=== PATIENT | male | born 1955 | race Caucasian/White ===

== ENCOUNTER → 2019-08-19 10:00 | Outpatient (CLI) | payer OTHER, SELFPAY | PROVIDERS: Family Provider Family Medicine; PCP Family Medicine; Referring Provider Urology; Visit Provider Urology | DX: N39.0 Urinary tract infection, site not specified (principal) | CPT/HCPCS: 87086 ==

== ENCOUNTER → 2020-07-24 08:50 | Outpatient (CLI) | payer OTHER, SELFPAY ==
[2020-07-24 10:50] LABS: PSA,Total - Annual Screen 2.57 ng/mL (0.00-4.00)
== END ==
PROVIDERS: PCP Family Medicine; Referring Provider Urology; Visit Provider Urology
CPT/HCPCS: 36415; 84153; G0103

== ENCOUNTER → 2020-08-03 18:13 | Outpatient (CLI) | payer OTHER, SELFPAY ==
--- NOTE | 2020-08-03 | FLU_PTH ---
PATIENT: MILEY GERBER LOC: [facility] U#:[id number] AGE/SX: 69/M ROOM: RE08/03/[address]: Dr. Burak Milian MD : 1955 BED: DIS: SPEC #: [id number] RECD: 08/03/20 15:45 STATUS: NIRMALA REBenito #: [id number] SAUL: 08/03/20 00:[address]: Burak Milian DEPT: CYTOLOGY RECD BY: Roldan Jones ENTERED: 08/04/20 09:27 SP TYPE: Fluid OTHR DR: Dr. Royer Bolden MD Tissues: Urine Procedures: Special Stain Group II Cytospin Fluid HEADER OPERATION: Not noted PRE-OP DIAGNOSIS: Malignant neoplasm of bladder TISSUE SUBMITTED: Urine for cytology DIAGNOSIS CYTOLOGY Urine for cytology (cytospin): Negative for malignant cells. AM:eddie 08/05/20 CYTOLOGY STUDY Slides are reviewed. CYTOLOGY GROSS Received is 70 ml of clear yellow fluid labeled with the patient's name and and designated per the requisition as urine. Submitted for cytology preparation. / eddie 08/04/20 TC:5 CPT: 97789
[2020-08-03 18:15] LABS: Cytology, Body Fluid / CSF SEE PATHOLOGY REPORT
== END ==
PROVIDERS: PCP Family Medicine; Visit Provider Urology
DX: C67.9 Malignant neoplasm of bladder, unspecified (principal)
CPT/HCPCS: 88108; 88305; 88313

== ENCOUNTER → 2021-08-04 11:26 | Outpatient (CLI) | payer MEDICARE, OTHER, SELFPAY | PROVIDERS: PCP Family Medicine; Referring Provider Urology; Visit Provider Urology | DX: Z12.5 Encounter for screening for malignant neoplasm of prostate (principal) | CPT/HCPCS: 36415; 84153; G0103 ==

== ENCOUNTER → 2021-08-09 16:58 | Outpatient (CLI) | payer MEDICARE, OTHER, SELFPAY ==
--- NOTE | 2021-08-09 09:44 | CYSPIN_PTH ---
PATIENT: MILEY GERBER LOC: [facility] U#:[id number] AGE/SX: 69/M ROOM: RE08/09/[address]: Dr. Burak Milian MD : 1955 BED: DIS: SPEC #: [id number] RECD: 08/10/21 07:38 STATUS: NIRMALA ROSIE #: [id number] SAUL: 08/09/21 09:[address]: Burak Milian DEPT: CYTOLOGY RECD BY: Tasha Granados ENTERED: 08/10/21 07:39 SP TYPE: CYSPIN FL OTHR DR: Dr. Royer Bolden MD Tissues: Urine Procedures: Pap Stain (control) Special Stain Group II Cytospin Fluid HEADER OPERATION: Not noted PRE-OP DIAGNOSIS: Bladder neoplasm TISSUE SUBMITTED: Urine for cytology DIAGNOSIS CYTOLOGY Urine for cytology (cytospin): Negative for malignant cells. AM:eddie 08/10/2021 CYTOLOGY STUDY Slides are reviewed. CYTOLOGY GROSS Received is 90 ml of light yellow clear fluid labeled with the patient's name and and designated per the requisition as urine. Submitted for cytology preparation. / eddie 08/09/21 TC:5 CPT: 23418
[2021-08-09 17:05] LABS: Cytology, Body Fluid / CSF SEE PATHOLOGY REPORT
== END ==
LOC: LAB 17:00 → LABSPEC 17:00
PROVIDERS: PCP Family Medicine; Referring Provider Urology; Visit Provider Urology
DX: C67.2 Malignant neoplasm of lateral wall of bladder (principal)
CPT/HCPCS: 88108; 88313

== ENCOUNTER → 2022-08-08 | Outpatient (CLI) | payer MEDICARE, OTHER, SELFPAY ==
[2022-08-08 14:55] LABS: PSA,Total - Annual Screen 0.73 ng/mL (0.00-4.00)
== END | disposition home or self-care (01) ==
LOC: LAB 13:42
PROVIDERS: PCP Family Medicine; Referring Provider Urology; Visit Provider Urology
DX: Z12.5 Encounter for screening for malignant neoplasm of prostate (principal)
CPT/HCPCS: 36415; 84153; G0103

== ENCOUNTER 2023-05-08 17:30 | Outpatient (RCR) | payer SELFPAY | END 2023-05-08 23:59 | LOC: NS 17:30 | PROVIDERS: PCP Family Medicine | DX: Z71.3 Dietary counseling and surveillance (principal); E11.9 Type 2 diabetes mellitus without complications ==

== ENCOUNTER → 2023-10-06 | Outpatient (CLI) | payer MEDICARE, OTHER, SELFPAY ==
--- OUTSIDE RECORDS SUMMARY | 2023-10-06 11:22 | XMS RPT_ITS | CCD ---
Author Name Unknown Address [address] [place] [address] Organization [facility] Care Team Providers Care Lead Generator Name Role Phone Ambrosio Conley MD Primary Care Provider [phone] AMBROSIO CONLEY Primary Care Unavailable FERNANDO HAYES Attending Unavailable AMBROSIO CONLEY Primary Care Unavailable SHAW OHARA Referring Unavailable ALESIA SINGH Attending Unavailable ALESIA SINGH Admitting Unavailable AMBROSIO CONLEY Primary Care Unavailable AMBROSIO CONLEY Primary Care Unavailable FERNANDO HAYES Referring Unavailable ALESIA SINGH Attending Unavailable AMBROSIO CONLEY Primary Care Unavailable SHAW OHARA Referring Unavailable AMBROSIO CONLEY Primary Care Unavailable SHAW OHARA Attending Unavailable AMBROSIO CONLEY Primary Care Unavailable AMBROSIO CONLEY Referring Unavailable Allergies Allergy Classification Reported Allergen(s) Allergy Type Date of Onset Reaction(s) Facility (6 sources) hay fever [Other] Propensity to adverse reactions [address] [place] [address] Work Phone: (2 sources) Seasonal allergy; Translations: [SEASONAL ALLERGIES] Allergy to substance 3 Intolerance [facility] Work Phone: (1 source) OTHER; Translations: [OTHER] Propensity to adverse reactions (disorder) 5 [facility] Repository Medications Current Medications Medication Drug Class(es) Dates Sig (Normalized) Sig (Original) fluticasone propionate 0.05 mg/actuat metered dose nasal spray (6 sources) Corticosteroid Start: 09-19-2023 End: 12-18-2023 take 2 spray(s) by mouth once daily fluticasone (FLONASE) 50 mcg/actuation nasal spray Indications: Seasonal allergies Use 2 Sprays in each nostril once daily. Rinse mouth after use. 3 Each 3 09/19/2023 12/18/2023 Active Completed/Discontinued Medications Medication Drug Class(es) Dates Sig (Normalized) Sig (Original) aspirin 81 mg delayed release oral tablet (7 sources) Platelet Aggregation Inhibitor, Nonsteroidal Anti-inflammatory Drug Start: 04-08-2009 ASPIRIN 81 MG TAB, DELAYED RELEASE Take one(1) tablet daily. 0 0 04/08/2009 Active Problems Active Problems Problem Classification Problem Date Documented Da te Episodic/Chronic Cancer of bladder (9 sources) Malignant tumor of urinary bladder; Translations: [Malignant neoplasm of bladder, unspecified] Onset: 03-14-2008 03-14-2008 Chronic Diabetes mellitus without complication (2 sources) Increased glucose level; Translations: [Other abnormal glucose] Onset: 09-14-2023 Episodic Disorders of lipid metabolism (3 sources) Hypercholesterolemi a; Translations: [Pure hypercholesterolemi a, unspecified] Onset: 09-14-2023 Chronic Hyperplasia of prostate (10 sources) Benign prostatic hypertrophy with outflow obstruction; Translations: [Benign prostatic hyperplasia with lower urinary tract symptoms] Onset: 03-26-2010 03-26-2010 Chronic Other diseases of bladder and urethra (7 sources) Bladder neck obstruction; Translations: [Bladder-neck obstruction] Onset: 03-26-2010 03-26-2010 Chronic Other nervous system disorders (3 sources) Carpal tunnel syndrome of right wrist; Translations: [Carpal tunnel syndrome, right upper limb] 05-05-2023 Chronic Other nervous system disorders (2 sources) Carpal tunnel syndrome, right upper limb; Translations: [Carpal tunnel syndrome on right] Onset: 07-17-2023 Chronic Other nervous system disorders (1 source) Paresthesia; Translations: [Paresthesia of skin] 05-05-2023 Episodic Other non-traumatic joint disorders (2 sources) Pain of right wrist; Translations: [Pain in right wrist] Episodic Other upper respiratory disease (9 sources) Seasonal allergy; Translations: [Other seasonal allergic rhinitis] Onset: 10-01-2010 10-01-2010 Chronic Other upper respiratory disease (1 source) Other seasonal allergic rhinitis; Translations: [Seasonal allergies] Onset: 10-01-2010 Chronic Viral infection (1 source) Disease caused by 2019-nCoV; Translations: [COVID-19] Episodic Past or Other Problems Problem Classification Problem Date Documented Da te Episodic/Chronic Cancer of bladder (9 sources) H/O: malignant neoplasm; Translations: [Personal history of malignant neoplasm of bladder] Onset: 03-26-2010 03-26-2010 Episodic Other non-epithelial cancer of skin (2 sources) History of malignant basal cell neoplasm of skin; Translations: [Personal history of other malignant neoplasm of skin] Onset: 03-09-2023 Episodic Other non-traumatic joint disorders (1 source) Pain in right wrist; Translations: [Right wrist pain] Onset: 05-05-2023 Episodic Results Test Name Value Interpretation Reference Range Facil ity Vital Signs Date Time Vital Sign Value Performing Clinician Faci lity 09-19-2023 10:46-0500 Diastolic blood pressure 82 mm[Hg] Fernando Hayes APRN.SALES REPRESENTATIVE TRAINEE Work Phone: [facility] 09-19-2023 10:46-0500 Systolic blood pressure 136 mm[Hg] Fernando Hayes APRN.SALES REPRESENTATIVE TRAINEE Work Phone: [facility] 09-19-2023 10:29-0500 Body weight 73.85 kg Fernando Hayes APRN.SALES REPRESENTATIVE TRAINEE Work Phone: [facility] 09-19-2023 10:29-0500 Heart rate 80 /min Fernando Hayes APRN.SALES REPRESENTATIVE TRAINEE Work Phone: [facility] 09-19-2023 10:29-0500 Respiratory rate 16 /min Fernando Hayes APRN.SALES REPRESENTATIVE TRAINEE Work Phone: [facility] 09-19-2023 10:29-0500 SaO2% (BldA) [Mass fraction] 98 % Fernando Hayes APRN.SALES REPRESENTATIVE TRAINEE Work Phone: [facility] 03-09-2023 10:51-0400 Diastolic blood pressure 80 mm[Hg] Shaw Ohara APRN.SALES REPRESENTATIVE TRAINEE Work Phone: [facility] 03-09-2023 10:51-0400 Systolic blood pressure 130 mm[Hg] Shaw Ohara APRN.SALES REPRESENTATIVE TRAINEE Work Phone: [facility] 03-09-2023 10:11-0400 Body weight 73.48 kg Shaw Ohara APRN.SALES REPRESENTATIVE TRAINEE Work Phone: [facility] 03-09-2023 10:11-0400 Heart rate 100 /min Shaw Ohara APRN.SALES REPRESENTATIVE TRAINEE Work Phone: [facility] 03-09-2023 10:11-0400 Respiratory rate 16 /min Shaw Ohara APRN.SALES REPRESENTATIVE TRAINEE Work Phone: [facility] 03-09-2023 10:11-0400 SaO2% (BldA) [Mass fraction] 98 % Shaw Ohara APRN.SALES REPRESENTATIVE TRAINEE Work Phone: [facility] Encounters Encounter Date Encounter Type Care Provider Facility Start: 09-28-2023 End: 09-28-2023 ambulatory ALESIA SINGH Facility:[facility] Start: 09-19-2023 End: 09-19-2023 ambulatory AMBROSIO CONLEY Facility:[facility] Start: 09-19-2023 End: 09-19-2023 Office outpatient visit 15 minutes Fernando Hayes APRN.SALES REPRESENTATIVE TRAINEE Work Phone: [facility] Procedures Date Procedure Procedure Detail Performing Clinician Start: 09-14-2023 Lipid 1996 panel - S chuck or Plasma Fernando Hayes APRN.SALES REPRESENTATIVE TRAINEE Work Phone: Start: 05-05-2023 Nerve conduction priscilla dies 5-6 studies Shaw Ohara APRN.SALES REPRESENTATIVE TRAINEE Work Phone: Start: 03-08-2023 Lipid 1996 panel - S chuck or Plasma Alesia Singh MD Work Phone: Start: 11-10-2021 Colonoscopy Tawny allen APRN.SALES REPRESENTATIVE TRAINEE Work Phone: Plan of Treatment Date Care Activity Detail Author Start: 11-10-2031 Colonoscopy COLONOSCOPY [facility] Start: 11-10-2031 COLORECTAL CANCER SCREENING COLORECTAL CANCER SCREENING [facility] Start: 11-10-2031 Screening for malign ant neoplasm of colon [facility] Start: 01-21-2029 Urine microalbumin profile [facility] Start: 09-14-2028 Lipid panel Lipid Screening [facility] Start: 03-08-2028 Lipid 1996 panel - S chuck or Plasma Lipid Screening [facility] Start: 03-08-2028 LIPID SCREEN LIPID SCREEN [facility] Start: 03-08-2028 PROSTATE CANCER SCRE ENING DISCUSSION PROSTATE CANCER SCREENING DISCUSSION [facility] Start: 03-08-2028 Prostate specific an tigen measurement Prostate Cancer Screening Discussion [facility] Start: 09-29-2026 LIPID SCREEN LIPID SCREEN [facility] Start: 09-14-2026 Diabetes Screening Diabetes Screenin g [facility] Start: 03-08-2026 DIABET[facility]CREEN [facility] Start: 03-08-2026 Diabetes Screening Diabetes Screenin g [facility] Start: 09-29-2024 DIABETES SCREEN DIABETES SCREEN [facility] Start: 09-19-2024 RSV Vaccine (1 - 1-d ose 60+ series) RSV Vaccine (1 - 1-dose 60+ series) [facility] Immunizations Immunization Date Immunization Notes Care Provider Consuelo rothman 08-11-2023 influenza (HD-IIV4) vaccine, age 65+ yr, high dose, quadrivalent, PF (FLUZONE HIGH-DOSE) Fernando Hayes PULMONARY FUNCTION TECHNOLOGIST.SALES REPRESENTATIVE TRAINEE Work Phone: [facility] 07-18-2022 influenza (HD-IIV4) vaccine, age 65+ yr, high dose, quadrivalent, PF (FLUZONE HIGH-DOSE) Fernando Howard PULMONARY FUNCTION TECHNOLOGIST.SALES REPRESENTATIVE TRAINEE Work Phone: [facility] 07-18-2022 influenza virus vacc ine, unspecified formulation Alesia Singh MD Work Phone: [facility] 08-03-2021 influenza (HD-IIV4) vaccine, age 65+ yr, high dose, quadrivalent, PF (FLUZONE HIGH-DOSE) Fernando Howard PULMONARY FUNCTION TECHNOLOGIST.SALES REPRESENTATIVE TRAINEE Work Phone: [facility] 11-11-2020 pneumococcal polysaccharide vaccine, 23 valent Tawny López PULMONARY FUNCTION TECHNOLOGIST.SALES REPRESENTATIVE TRAINEE Work Phone: [facility] 07-17-2020 influenza, injectabl e, quadrivalent, preservative free Fernando Hayes PULMONARY FUNCTION TECHNOLOGIST.SALES REPRESENTATIVE TRAINEE Work Phone: [facility] 07-09-2019 Influenza, injectabl e, Madin Bria Canine Kidney, preservative free, quadrivalent Fernando Howard PULMONARY FUNCTION TECHNOLOGIST.SALES REPRESENTATIVE TRAINEE Work Phone: [facility] 01-21-2019 tetanus toxoid, redu kristi diphtheria toxoid, and acellular pertussis vaccine, adsorbed Tawny Knoble PULMONARY FUNCTION TECHNOLOGIST.SALES REPRESENTATIVE TRAINEE Work Phone: [facility] 07-09-2018 Influenza, injectabl e, Madin Patterson Canine Kidney, preservative free, quadrivalent Fernando Howard PULMONARY FUNCTION TECHNOLOGIST.SALES REPRESENTATIVE TRAINEE Work Phone: [facility] 07-04-2017 influenza, injectabl e, quadrivalent, contains preservative Fernando Howard PULMONARY FUNCTION TECHNOLOGIST.SALES REPRESENTATIVE TRAINEE Work Phone: [facility] 07-27-2015 influenza, injectabl e, quadrivalent, preservative free Tawny Knoble PULMONARY FUNCTION TECHNOLOGIST.SALES REPRESENTATIVE TRAINEE Work Phone: [facility] 07-28-2014 influenza, seasonal, injectable, preservative free Fernando Howard PULMONARY FUNCTION TECHNOLOGIST.SALES REPRESENTATIVE TRAINEE Work Phone: [facility] 08-13-2013 influenza virus vacc ine, unspecified formulation Tawny Rene PULMONARY FUNCTION TECHNOLOGIST.SALES REPRESENTATIVE TRAINEE Work Phone: [facility] Work Phone: 09-28-2009 novel influenza-H1N1 -09, preservative-free, injectable Fernando Howard PULMONARY FUNCTION TECHNOLOGIST.SALES REPRESENTATIVE TRAINEE Work Phone: [facility] 04-08-2009 tetanus toxoid, redu kristi diphtheria toxoid, and acellular pertussis vaccine, adsorbed Tawny Knoble PULMONARY FUNCTION TECHNOLOGIST.SALES REPRESENTATIVE TRAINEE Work Phone: [facility] Work Phone: Payers Date Payer Category Payer Private Health Insurance [facility] AARP SUPPLEMENT [id number] 2021-Present [phone] [address] [place] [address] Indemnity [id number] 2021 Unknown [id number] 2019 Medicare MEDICARE MEDICAR E A AND B [id number] 2019-Present [phone] [place] [address] Medicare [id number] 2019 Medicare [id number] Social History Date Type Detail Facility Start: 01-21-2019 End: 03-09-2023 Tobacco smoking status NHIS Never smoked tobacco [facility] Start: 01-21-2019 End: 03-09-2023 Tobacco use and exposure Smokeless tobacco non-user [facility] Start: 11-10-2021 End: 09-19-2023 Alcohol intake Current drinker of alcohol (finding) [facility] Start: 09-26-2022 History SDOH Social Connections Phone 3 [facility] Start: 09-26-2022 History SDOH Social Connections Membership 1 [facility] Start: 09-26-2022 History SDOH Physica l Activity DPW 6 [facility] Start: 09-26-2022 History SDOH Physica l Activity MPS 2 [facility] Start: 1955 Sex Assigned At Male C [facility] Start: 09-26-2022 End: 03-09-2023 History of Social function [facility] Start: 09-26-2022 End: 03-09-2023 Social connection and isolation panel [facility] Frequency of Social Gatherings with Friends and Family Not on file [facility] Work Phone: Do you belong to any clubs or organizations such as episcopal groups, unions, fraternal or athletic groups, or school groups? Yes [facility] Do you feel stress - tense, restless, nervous, or anxious, or unable to sleep at night because your mind is troubled all the time - these days [OSQ] Not at all [facility] Clinical Notes 09-26-2022 to 09-19-2023 Fernando Hayes APRN.SALES REPRESENTATIVE TRAINEE - 09/19/2023 10:32 AM ESTTelephone Encounter - Sarah Forde Ma - 08/16/2023 8:21 AM ESTTelephone Encounter - Sarah Forde Ma - 08/10/2023 10:16 AM EDTPatient Instructions Note Date & Type Note Facility 09-19-2023 Note HNO ID: [id number] Author: Fernando Hayes APRN.SALES REPRESENTATIVE TRAINEE Service: ? Author Type: Nurse Practitioner Type: Progress Notes Filed: 09/19/2023 10:55 AM Note Text: Chief Complaint Patient presents with: F/U 6 Month HPI Miley Baez is a 67 year old male who presents here today for Chronic Medical Conditions. follow up for blood work review. Patient following with urology for BPH. Taking meds as prescribed. He is on a daily aspirin. Reviewing labs with the patient. Cholesterol panel mildly elevated. LDL is consistent with past readings. HDL is in good range. LDL HDL ratio is normal. Discussed some lifestyle changes that I would recommend first before any pursuing of medication. Requesting refill of Flonase for seasonal allergies. Past medical history, appointments, medications, allergies reviewed. EXAM: BP 136/82 Pulse 80 Resp 16 Wt 73.8 kg (162 lb 12.8 oz) SpO2 98% BMI 25.11 kg/m? General Appearance: Well appearing, alert, in no acute distress, well-hydrated, well nourished.. Lungs: Lungs clear to auscultation. No wheezing, rhonchi, rales.. Heart: RRR without murmur, gallop, or rubs. No ectopy. Component Latest Ref Rng AND Units 09/14/2023 WBC 3.70 - 11.00 k/uL 4.24 RBC 4.20 - 6.00 m/uL 5.01 Hemoglobin 13.0 - 17.0 g/dL 15.8 Hematocrit 39.0 - 51.0 % 47.6 MCV 80.0 - 100.0 fL 95.0 MCH 26.0 - 34.0 pg 31.5 MCHC 30.5 - 36.0 g/dL 33.2 RDW-CV 11.5 - 15.0 % 12.7 Platelet Count 150 - 400 k/uL 235 MPV 9.0 - 12.7 fL 9.4 Neut% % 61.2 Abs Neut (ANC) 1.45 - 7.50 k/uL 2.59 Lymph% % 19.3 Abs Lymph 1.00 - 4.00 k/uL 0.82 (L) Morrill% % 12.0 Abs Morrill <0.87 k/uL 0.51 Eosin% % 6.4 Abs Eosin <0.46 k/uL 0.27 Baso% % 0.9 Abs Baso <0.11 k/uL 0.04 Immature Gran % % 0.2 IMMATURE GRANS (ABS) <0.10 k/uL <0.03 NRBC /100 WBC 0.0 Absolute nRBC <0.01 k/uL <0.01 DTYPE Auto Protein, Total 6.3 - 8.0 g/dL 6.7 Albumin 3.9 - 4.9 g/dL 4.6 Calcium 8.5 - 10.2 mg/dL 9.4 Bilirubin, Total 0.2 - 1.3 mg/dL 0.7 Alkaline Phosphatase 38 - 113 U/L 63 AST 14 - 40 U/L 20 ALT 10 - 54 U/L 15 Glucose 74 - 99 mg/dL 103 (H) BUN 9 - 24 mg/dL 13 Creatinine 0.73 - 1.22 mg/dL 0.97 Sodium 136 - 144 mmol/L 136 Potassium 3.7 - 5.1 mmol/L 3.8 Chloride 97 - 105 mmol/L 99 CO2 22 - 30 mmol/L 30 Anion Gap 9 - 18 mmol/L 7 (L) eGFR >=60 mL/min/1.73mA? 85 Cholesterol, Total <200 mg/dL 209 (H) Triglyceride <150 mg/dL 66 HDL Cholesterol >39 mg/dL 61 Non HDL Cholesterol <130 mg/dL 148 (H) Fasting Time hrs 12 VLDL Cholesterol <30 mg/dL 13 TC:HDL Ratio <5.10 3.43 LDL Cholesterol <100 mg/dL 135 (H) LDL:HDL Ratio <2.54 2.21 Hemoglobin A1C 4.3 - 5.6 % 5.3 Estimated Average Glucose mg/dL 105 ASSESSMENT/PLAN: 1. Elevated cholesterol - ICD9: 272.0, ICD10: E78.00 (primary diagnosis) -10-year risk is marginally elevated. Discussed lifestyle changes that would be recommended first. Patient seems to think there is some areas of improvement that could occur. Reassuring that HDL is on the higher side. Continue to monitor yearly. 2. Seasonal allergies - ICD9: 477.9, ICD10: J30.2 -Refilled - FLUTICASONE PROPIONATE 50 MCG/ACTUATION NASAL SPRAY,SUSPENSION 3. Benign prostatic hyperplasia, unspecified whether lower urinary tract symptoms present - ICD9: 600.00, ICD10: N40.0 -Continue following with urology Fernando Hayes APRN.SALES REPRESENTATIVE TRAINEE RTO in 12 months, sooner if needed for Medicare Wellness Exam. This note was partly generated using [employer] voice recognition dictation and may contain some misspelled or inaccurate words missed on review. [facility] 09-19-2023 History of Present illness Narrative Chief Complaint Patient presents with: F/U 6 Month HPI Miley Baez is a 67 year old male who presents here today for Chronic Medical Conditions. follow up for blood work review. Patient following with urology for BPH. Taking meds as prescribed. He is on a daily aspirin. Reviewing labs with the patient. Cholesterol panel mildly elevated. LDL is consistent with past readings. HDL is in good range. LDL HDL ratio is normal. Discussed some lifestyle changes that I would recommend first before any pursuing of medication. Requesting refill of Flonase for seasonal allergies. Past medical history, appointments, medications, allergies reviewed. EXAM: BP 136/82 Pulse 80 Resp 16 Wt 73.8 kg (162 lb 12.8 oz) SpO2 98% BMI 25.11 kg/m General Appearance: Well appearing, alert, in no acute distress, well-hydrated, well nourished.. Lungs: Lungs clear to auscultation. No wheezing, rhonchi, rales.. Heart: RRR without murmur, gallop, or rubs. No ectopy. Component Latest Ref Rng & Units 09/14/2023 WBC 3.70 - 11.00 k/uL 4.24 RBC 4.20 - 6.00 m/uL 5.01 Hemoglobin 13.0 - 17.0 g/dL 15.8 Hematocrit 39.0 - 51.0 % 47.6 MCV 80.0 - 100.0 fL 95.0 MCH 26.0 - 34.0 pg 31.5 MCHC 30.5 - 36.0 g/dL 33.2 RDW-CV 11.5 - 15.0 % 12.7 Platelet Count 150 - 400 k/uL 235 MPV 9.0 - 12.7 fL 9.4 Neut% % 61.2 Abs Neut (ANC) 1.45 - 7.50 k/uL 2.59 Lymph% % 19.3 Abs Lymph 1.00 - 4.00 k/uL 0.82 (L) Morrill% % 12.0 Abs Morrill <0.87 k/uL 0.51 Eosin% % 6.4 Abs Eosin <0.46 k/uL 0.27 Baso% % 0.9 Abs Baso <0.11 k/uL 0.04 Immature Gran % % 0.2 IMMATURE GRANS (ABS) <0.10 k/uL <0.03 NRBC /100 WBC 0.0 Absolute nRBC <0.01 k/uL <0.01 DTYPE Auto Protein, Total 6.3 - 8.0 g/dL 6.7 Albumin 3.9 - 4.9 g/dL 4.6 Calcium 8.5 - 10.2 mg/dL 9.4 Bilirubin, Total 0.2 - 1.3 mg/dL 0.7 Alkaline Phosphatase 38 - 113 U/L 63 AST 14 - 40 U/L 20 ALT 10 - 54 U/L 15 Glucose 74 - 99 mg/dL 103 (H) BUN 9 - 24 mg/dL 13 Creatinine 0.73 - 1.22 mg/dL 0.97 Sodium 136 - 144 mmol/L 136 Potassium 3.7 - 5.1 mmol/L 3.8 Chloride 97 - 105 mmol/L 99 CO2 22 - 30 mmol/L 30 Anion Gap 9 - 18 mmol/L 7 (L) eGFR >=60 mL/min/1.73m 85 Cholesterol, Total <200 mg/dL 209 (H) Triglyceride <150 mg/dL 66 HDL Cholesterol >39 mg/dL 61 Non HDL Cholesterol <130 mg/dL 148 (H) Fasting Time hrs 12 VLDL Cholesterol <30 mg/dL 13 TC:HDL Ratio <5.10 3.43 LDL Cholesterol <100 mg/dL 135 (H) LDL:HDL Ratio <2.54 2.21 Hemoglobin A1C 4.3 - 5.6 % 5.3 Estimated Average Glucose mg/dL 105 ASSESSMENT/PLAN: 1. Elevated cholesterol - ICD9: 272.0, ICD10: E78.00 (primary diagnosis) -10-year risk is marginally elevated. Discussed lifestyle changes that would be recommended first. Patient seems to think there is some areas of improvement that could occur. Reassuring that HDL is on the higher side. Continue to monitor yearly. 2. Seasonal allergies - ICD9: 477.9, ICD10: J30.2 -Refilled - FLUTICASONE PROPIONATE 50 MCG/ACTUATION NASAL SPRAY,SUSPENSION 3. Benign prostatic hyperplasia, unspecified whether lower urinary tract symptoms present - ICD9: 600.00, ICD10: N40.0 -Continue following with urology Fernando Hayes APRN.CNP RTO in 12 months, sooner if needed for Medicare Wellness Exam. This note was partly generated using Dragon voice recognition dictation and may contain some misspelled or inaccurate words missed on review. documented in this encounter [facility] 08-16-2023 Miscellaneous Notes Surgery has been scheduled as requested. Surgical request completed for right CTR at [facility] on 09/28/2023. Post op appointments have been scheduled and mailed to the patient. documented in this encounter [facility] 07-17-2023 Note HNO ID: [id number] Author: Alesia Singh MD Service: ? Author Type: Physician Type: Progress Notes Filed: 07/17/2023 11:25 AM Note Text: Alesia Singh MD Department of Orthopaedics Orthopaedics [address] [facility] [address] Dept: [phone] Dept July 17, 2023 CHIEF COMPLAINT: New and Pain of the Right Wrist (CTS) HPI Patient presents with: Right Wrist - New, Pain: CTS Pt here for eval of CTS. Pt states no pain during the day, only at night. Been wearing a brace at night with minimal help. Right hand dominant ASSESSMENT: G56.01 Carpal tunnel syndrome, right PLAN: We reviewed the risks, benefits, alternatives and potential complications involving both operative and nonoperative treatment for his carpal tunnel. 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 FOLLOW UP INSTRUCTIONS: As above Mr. Miley Baez was advised as to contrast therapies and/or to take analgesics/anti-inflammatories as needed and all contraindications were reviewed. OBJECTIVE: Mr. Miley Baez is a pleasant 67 year old in no apparent distress. Gen:There were no vitals taken for this visit. nl development, non obese, no deformities ENT: Normocephalic, normal hearing, moist mucosa CV: Pulses:Radial= 2+ and symmetric, capillary refill < 2 secs, no peripheral edema/varicosities Skin: no rash, bruising or lesions. Good turgor. Psych: cooperative and appropriate, alert and oriented x 3, good mood and affect. Musculoskeletal: Mild diminished light touch sensation in the median distribution on the right. Positive Tinel's and positive median nerve compression testing. IMAGING: Electrodiagnostic examination of the right upper limb and related cervical paraspinal muscles reveals changes most consistent with the followin. 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 2. 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 3. No definite evidence of an ulnar neuropathy. Supporting Subjective Information Below: Past Medical History: PAST MEDICAL HISTORY Diagnosis Date Malignant neoplasm of bladder, part unspecified Other and unspecified hyperlipidemia Seasonal allergies Past Surgical History: PAST SURGICAL HISTORY Procedure Laterality Date COLONOSCOPY 11/10/2021 repeat in 10 years COLONOSCOPY FLX DX W/COLLJ SPEC WHEN PFRMD 04/06/2011 Family History: FAMILY HISTORY Problem Relation Age of Onset Heart Father at age of 53 Diabetes Mother Heart Mother [place] 73, heart valve replacement Diabetes Maternal Grandmother Social History: Social History Tobacco Use Smoking status: Never Smokeless tobacco: Never Substance Use Topics Alcohol use: Yes Comment: Occ Drug use: Never Medications: Current Outpatient Medications Medication Sig dutasteride (AVODART) 0.5 mg capsule Take 0.5 mg by mouth once daily. tamsulosin ER (FLOMAX) 0.4 mg cp24 TAKE 1 CAPSULE TWICE DAILY ASPIRIN 81 MG TAB, DELAYED RELEASE Take one(1) tablet daily. No current facility-administered medications for this visit. Allergies: Hay Fever [Other] ROS: General (negative for fatigue, malaise, weight loss/gain) HEENT (negative for headache, earache, recent vision changes, sinus pain, sore throat) Respiratory (no recent shortness of breath, hemoptysis) CV (negative for chest tightness, palpitations) Musculoskeletal (see HPI) Psych (no depression, anxiety) REFERRING PHYSICIAN: Consultation requested by Fernando Hayes for an opinion regarding right carpal tunnel. My final recommendations will be communicated back to the requesting physician by way of shared Medical record or letter to requesting physician via US mail. Fernando Hayes [address] [facility] [address] Ambrosio Conley MD [address] [facility] [id number] Alesia Singh MD [facility] 07-17-2023 History of Present illness Narrative Alesia Singh MD Department of Orthopaedics Orthopaedics [address] [facility] [address] Dept: [phone] Dept July 17, 2023 CHIEF COMPLAINT: New and Pain of the Right Wrist (CTS) HPI Patient presents with: Right Wrist - New, Pain: CTS Pt here for eval of CTS. Pt states no pain during the day, only at night. Been wearing a brace at night with minimal help. Right hand dominant ASSESSMENT: G56.01 Carpal tunnel syndrome, right PLAN: We reviewed the risks, benefits, alternatives and potential complications involving both operative and nonoperative treatment for his carpal tunnel. 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 FOLLOW UP INSTRUCTIONS: As above Mr. Miley Baez was advised as to contrast therapies and/or to take analgesics/anti-inflammatories as needed and all contraindications were reviewed. OBJECTIVE: Mr. Miley Baez is a pleasant 67 year old in no apparent distress. Gen:There were no vitals taken for this visit. nl development, non obese, no deformities ENT: Normocephalic, normal hearing, moist mucosa CV: Pulses:Radial= 2+ and symmetric, capillary refill < 2 secs, no peripheral edema/varicosities Skin: no rash, bruising or lesions. Good turgor. Psych: cooperative and appropriate, alert and oriented x 3, good mood and affect. Musculoskeletal: Mild diminished light touch sensation in the median distribution on the right. Positive Tinel's and positive median nerve compression testing. IMAGING: Electrodiagnostic examination of the right upper limb and related cervical paraspinal muscles reveals changes most consistent with the followin. 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 2. 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 3. No definite evidence of an ulnar neuropathy. Supporting Subjective Information Below: Past Medical History: PAST MEDICAL HISTORY Diagnosis Date Malignant neoplasm of bladder, part unspecified Other and unspecified hyperlipidemia Seasonal allergies Past Surgical History: PAST SURGICAL HISTORY Procedure Laterality Date COLONOSCOPY 11/10/2021 repeat in 10 years COLONOSCOPY FLX DX W/COLLJ SPEC WHEN PFRMD 04/06/2011 Family History: FAMILY HISTORY Problem Relation Age of Onset Heart Father at age of 53 Diabetes Mother Heart Mother [place] 73, heart valve replacement Diabetes Maternal Grandmother Social History: Social History Tobacco Use Smoking status: Never Smokeless tobacco: Never Substance Use Topics Alcohol use: Yes Comment: Occ Drug use: Never Medications: Current Outpatient Medications Medication Sig dutasteride (AVODART) 0.5 mg capsule Take 0.5 mg by mouth once daily. tamsulosin ER (FLOMAX) 0.4 mg cp24 TAKE 1 CAPSULE TWICE DAILY ASPIRIN 81 MG TAB, DELAYED RELEASE Take one(1) tablet daily. No current facility-administered medications for this visit. Allergies: Hay Fever [Other] ROS: General (negative for fatigue, malaise, weight loss/gain) HEENT (negative for headache, earache, recent vision changes, sinus pain, sore throat) Respiratory (no recent shortness of breath, hemoptysis) CV (negative for chest tightness, palpitations) Musculoskeletal (see HPI) Psych (no depression, anxiety) REFERRING PHYSICIAN: Consultation requested by Fernando Hayes for an opinion regarding right carpal tunnel. My final recommendations will be communicated back to the requesting physician by way of shared Medical record or letter to requesting physician via US mail. Fernando Hayes [address] [facility] [address] Ambrosio Conley MD [address] [facility] [address] Alesia Singh MD documented in this encounter [facility] 05-05-2023 Note HNO ID: [id number] Author: Tawny Vasquez MD Service: ? Author Type: Physician Type: Progress Notes Filed: 05/05/2023 11:23 AM Note Text: UNIVERSAL PROTOCOL / SAFETY CHECKLIST Procedure to be Performed: EMG Sign In: A Moment of CARE was completed. Personnel directly involved with the procedure wore the appropriate PPE (Personal Protective Equipment). Patient/Surrogate Stated/Verified: PATIENT VERIFIED(optional for EMERGENT procedures): Patient name, Date of , Relevant allergies, and The intended procedure Time Out Communication: Intended patient and procedure match the source documents. Correct side/site marked and visible. Sign Out: SIGN OUT (optional for EMERGENT procedures): Post-procedure follow-up management communicated and Plan of Care Visit completed when applicable. Sonia Cabrera EMG Tawny Vasquez MD Staff, [facility] [place] Electronically signed May 05, 2023 11:23 AM [facility] 05-05-2023 Miscellaneous Notes Patient notified of results, verbalizes understanding of instructions. Millicent Mejia LPN Please let the patient know that I reviewed his recent EMG of the right upper extremity. Shows likely some of his right wrist pain is related to carpal tunnel syndrome. I placed a referral to orthopedics for treatment. I am covering for Shaw as she is on vacation. Fernando Hayes APRN.JESSIE documented in this encounter [facility] 05-05-2023 History of Present illness Narrative UNIVERSAL PROTOCOL / SAFETY CHECKLIST Procedure to be Performed: EMG Sign In: A Moment of CARE was completed. Personnel directly involved with the procedure wore the appropriate PPE (Personal Protective Equipment). Patient/Surrogate Stated/Verified: PATIENT VERIFIED(optional for EMERGENT procedures): Patient name, Date of , Relevant allergies, and The intended procedure Time Out Communication: Intended patient and procedure match the source documents. Correct side/site marked and visible. Sign Out: SIGN OUT (optional for EMERGENT procedures): Post-procedure follow-up management communicated and Plan of Care Visit completed when applicable. Sonia Vasquez MD Staff, [facility] [place] Electronically signed May 05, 2023 11:23 AM documented in this encounter [facility] 03-09-2023 Note HNO ID: [id number] Author: Shaw Ohara APRN.SALES REPRESENTATIVE TRAINEE Service: ? Author Type: Nurse Practitioner Type: Progress Notes Filed: 03/09/2023 10:56 AM Note Text: HISTORY OF PRESENT ILLNESS: Miley Baez is a 67 year old male. Patient presents with: 6 Month Exam: labs Here in the office for follow up. Urology: History of BPH and bladder cancer. Taking Flomax/Avodart. Following with urology, Dr. Milian yearly. Basal cell skin cancer: Following with dermatology, Dr. Mccullough twice yearly. Seasonal Allergies: Taking Xyzal and Flonase daily. Right Hand/Forearm Tingling: Numbness and tingling into the right hand and can move into the forearm. Waxes and wanes. Worse with increased activity. Has been wearing wrist brace and NSAIDS which has not been effective. Some decreased carbon printer strength. Started about 5-10 years. PAST MEDICAL HISTORY: PAST MEDICAL HISTORY Diagnosis Date Malignant neoplasm of bladder, part unspecified Other and unspecified hyperlipidemia Seasonal allergies PAST SURGICAL HISTORY Procedure Laterality Date COLONOSCOPY 11/10/2021 repeat in 10 years COLONOSCOPY FLX DX W/COLLJ SPEC WHEN PFRMD 04/06/2011 ALLERGIES Hay Fever [Other] MEDICATIONS Current Outpatient Medications Medication Sig dutasteride (AVODART) 0.5 mg capsule Take 0.5 mg by mouth once daily. fluticasone (FLONASE) 50 mcg/actuation nasal spray Use 2 Sprays in each nostril once daily. tamsulosin ER (FLOMAX) 0.4 mg cp24 TAKE 1 CAPSULE TWICE DAILY ASPIRIN 81 MG TAB, DELAYED RELEASE Take one(1) tablet daily. No current facility-administered medications for this visit. FAMILY HISTORY Problem Relation Age of Onset Heart Father at age of 53 Diabetes Mother Heart Mother [place] 73, heart valve replacement Diabetes Maternal Grandmother Social History Tobacco Use Smoking status: Never Smokeless tobacco: Never Substance Use Topics Alcohol use: Yes Comment: Occ Drug use: Never REVIEW OF SYSTEMS GENERAL: No weight loss, malaise or fevers/chills HEENT: Negative for frequent or significant headaches, No changes in hearing or vision. NECK: Negative for lumps, goiter, pain and significant neck swelling RESPIRATORY: Negative for cough, hemoptysis, wheezing, dyspnea or shortness of breath CARDIOVASCULAR: Negative for chest pain, leg swelling, orthopnea, or palpitations GI: No nausea, vomiting, or diarrhea/constipation. No hematochezia/melena. No heartburn or reflux symptoms. : No history of dysuria, frequency or incontinence MUSCULOSKELETAL: Pain/numbness tingling. SKIN: Negative for lesions, rash, and itching ENDOCRINE: Negative for cold or heat intolerance, polyuria, polydipsia and goiter NEURO: No history of headaches, syncope, paralysis, seizures or tremors MOOD: Negative for depression, anxiety, or suicidal ideation. EXAM: BP 150/90 Pulse 100 Resp 16 Wt 73.5 kg (162 lb) SpO2 98% BMI 24.98 kg/m? BP 130/80 Pulse 100 Resp 16 Wt 73.5 kg (162 lb) SpO2 98% BMI 24.98 kg/m? PHYSICAL EXAM: General Appearance: Well appearing, alert, in no acute distress, well-hydrated, well nourished. Skin: Skin color, texture, turgor normal, no suspicious rashes or lesions. Head: Normocephalic, no masses, lesions, tenderness or abnormalities. Eyes: Anicteric sclera. Extraocular movements are intact. Lungs: Lungs clear to auscultation. No wheezing, rhonchi, rales. Heart: RRR without murmur, gallop, or rubs. No ectopy. Extremities: No deformities, edema, skin discoloration, clubbing or cyanosis. Good capillary refill. Musculoskeletal: + Tinels test on right hand. Decreased carbon printer strength. Nontender with palpation. Peripheral Pulses: Normal, Capillary refill <2secs, strong peripheral pulses, Pulses palpable. Neurologic: Gait normal. Sensation grossly intact. Component Latest Ref Rng AND Units 03/08/2023 WBC 3.70 - 11.00 k/uL 4.16 RBC 4.20 - 6.00 m/uL 5.03 Hemoglobin 13.0 - 17.0 g/dL 15.8 Hematocrit 39.0 - 51.0 % 47.0 MCV 80.0 - 100.0 fL 93.4 MCH 26.0 - 34.0 pg 31.4 MCHC 30.5 - 36.0 g/dL 33.6 RDW-CV 11.5 - 15.0 % 13.0 Platelet Count 150 - 400 k/uL 224 MPV 9.0 - 12.7 fL 9.7 Neut% % 56.5 Abs Neut (ANC) 1.45 - 7.50 k/uL 2.35 Lymph% % 22.6 Abs Lymph 1.00 - 4.00 k/uL 0.94 (L) Morrill% % 12.0 Abs Morrill <0.87 k/uL 0.50 Eosin% % 7.7 Abs Eosin <0.46 k/uL 0.32 Baso% % 1.0 Abs Baso <0.11 k/uL 0.04 Immature Gran % % 0.2 IMMATURE GRANS (ABS) <0.10 k/uL <0.03 NRBC /100 WBC 0.0 Absolute nRBC <0.01 k/uL <0.01 DTYPE Auto Protein, Total 6.3 - 8.0 g/dL 6.4 Albumin 3.9 - 4.9 g/dL 4.3 Calcium 8.5 - 10.2 mg/dL 9.1 Bilirubin, Total 0.2 - 1.3 mg/dL 0.7 Alkaline Phosphatase 38 - 113 U/L 63 AST 14 - 40 U/L 28 ALT 10 - 54 U/L 21 Glucose 74 - 99 mg/dL 107 (H) BUN 9 - 24 mg/dL 17 Creatinine 0.73 - 1.22 mg/dL 1.06 Sodium 136 - 144 mmol/L 139 Potassium 3.7 - 5.1 mmol/L 3.9 Chloride 97 - 105 mmol/L 103 CO2 22 - 30 mmol/L 29 Anion Gap 9 - 18 m (more content not included)... [facility] 03-09-2023 Instructions Shaw Ohara APRN.SALES REPRESENTATIVE TRAINEE - 03/09/2023 10:41 AM EDT Get repeat fasting labs completed in 6 months prior to next office visit. Continue to take all medication as prescribed. Schedule appointment for EMG testing for wrist pain. Continue to wear wrist brace, NSAIDS, and ice as needed. Work on eating low carb, increase protein, veggies, and stay active. Follow up in 6 months or sooner as needed. documented in this encounter [facility] 03-09-2023 History of Present illness Narrative HISTORY OF PRESENT ILLNESS: Miley Baez is a 67 year old male. Patient presents with: 6 Month Exam: labs Here in the office for follow up. Urology: History of BPH and bladder cancer. Taking Flomax/Avodart. Following with urology, Dr. Milian yearly. Basal cell skin cancer: Following with dermatology, Dr. Mccullough twice yearly. Seasonal Allergies: Taking Xyzal and Flonase daily. Right Hand/Forearm Tingling: Numbness and tingling into the right hand and can move into the forearm. Waxes and wanes. Worse with increased activity. Has been wearing wrist brace and NSAIDS which has not been effective. Some decreased carbon printer strength. Started about 5-10 years. PAST MEDICAL HISTORY: PAST MEDICAL HISTORY Diagnosis Date Malignant neoplasm of bladder, part unspecified Other and unspecified hyperlipidemia Seasonal allergies PAST SURGICAL HISTORY Procedure Laterality Date COLONOSCOPY 11/10/2021 repeat in 10 years COLONOSCOPY FLX DX W/COLLJ SPEC WHEN PFRMD 04/06/2011 ALLERGIES Hay Fever [Other] MEDICATIONS Current Outpatient Medications Medication Sig dutasteride (AVODART) 0.5 mg capsule Take 0.5 mg by mouth once daily. fluticasone (FLONASE) 50 mcg/actuation nasal spray Use 2 Sprays in each nostril once daily. tamsulosin ER (FLOMAX) 0.4 mg cp24 TAKE 1 CAPSULE TWICE DAILY ASPIRIN 81 MG TAB, DELAYED RELEASE Take one(1) tablet daily. No current facility-administered medications for this visit. FAMILY HISTORY Problem Relation Age of Onset Heart Father at age of 53 Diabetes Mother Heart Mother [place] 73, heart valve replacement Diabetes Maternal Grandmother Social History Tobacco Use Smoking status: Never Smokeless tobacco: Never Substance Use Topics Alcohol use: Yes Comment: Occ Drug use: Never REVIEW OF SYSTEMS GENERAL: No weight loss, malaise or fevers/chills HEENT: Negative for frequent or significant headaches, No changes in hearing or vision. NECK: Negative for lumps, goiter, pain and significant neck swelling RESPIRATORY: Negative for cough, hemoptysis, wheezing, dyspnea or shortness of breath CARDIOVASCULAR: Negative for chest pain, leg swelling, orthopnea, or palpitations GI: No nausea, vomiting, or diarrhea/constipation. No hematochezia/melena. No heartburn or reflux symptoms. : No history of dysuria, frequency or incontinence MUSCULOSKELETAL: Pain/numbness tingling. SKIN: Negative for lesions, rash, and itching ENDOCRINE: Negative for cold or heat intolerance, polyuria, polydipsia and goiter NEURO: No history of headaches, syncope, paralysis, seizures or tremors MOOD: Negative for depression, anxiety, or suicidal ideation. EXAM: BP 150/90 Pulse 100 Resp 16 Wt 73.5 kg (162 lb) SpO2 98% BMI 24.98 kg/m BP 130/80 Pulse 100 Resp 16 Wt 73.5 kg (162 lb) SpO2 98% BMI 24.98 kg/m PHYSICAL EXAM: General Appearance: Well appearing, alert, in no acute distress, well-hydrated, well nourished. Skin: Skin color, texture, turgor normal, no suspicious rashes or lesions. Head: Normocephalic, no masses, lesions, tenderness or abnormalities. Eyes: Anicteric sclera. Extraocular movements are intact. Lungs: Lungs clear to auscultation. No wheezing, rhonchi, rales. Heart: RRR without murmur, gallop, or rubs. No ectopy. Extremities: No deformities, edema, skin discoloration, clubbing or cyanosis. Good capillary refill. Musculoskeletal: + Tinels test on right hand. Decreased carbon printer strength. Nontender with palpation. Peripheral Pulses: Normal, Capillary refill <2secs, strong peripheral pulses, Pulses palpable. Neurologic: Gait normal. Sensation grossly intact. Component Latest Ref Rng & Units 03/08/2023 WBC 3.70 - 11.00 k/uL 4.16 RBC 4.20 - 6.00 m/uL 5.03 Hemoglobin 13.0 - 17.0 g/dL 15.8 Hematocrit 39.0 - 51.0 % 47.0 MCV 80.0 - 100.0 fL 93.4 MCH 26.0 - 34.0 pg 31.4 MCHC 30.5 - 36.0 g/dL 33.6 RDW-CV 11.5 - 15.0 % 13.0 Platelet Count 150 - 400 k/uL 224 MPV 9.0 - 12.7 fL 9.7 Neut% % 56.5 Abs Neut (ANC) 1.45 - 7.50 k/uL 2.35 Lymph% % 22.6 Abs Lymph 1.00 - 4.00 k/uL 0.94 (L) Morrill% % 12.0 Abs Morrill <0.87 k/uL 0.50 Eosin% % 7.7 Abs Eosin <0.46 k/uL 0.32 Baso% % 1.0 Abs Baso <0.11 k/uL 0.04 Immature Gran % % 0.2 IMMATURE GRANS (ABS) <0.10 k/uL <0.03 NRBC /100 WBC 0.0 Absolute nRBC <0.01 k/uL <0.01 DTYPE Auto Protein, Total 6.3 - 8.0 g/dL 6.4 Albumin 3.9 - 4.9 g/dL 4.3 Calcium 8.5 - 10.2 mg/dL 9.1 Bilirubin, Total 0.2 - 1.3 mg/dL 0.7 Alkaline Phosphatase 38 - 113 U/L 63 AST 14 - 40 U/L 28 ALT 10 - 54 U/L 21 Glucose 74 - 99 mg/dL 107 (H) BUN 9 - 24 mg/dL 17 Creatinine 0.73 - 1.22 mg/dL 1.06 Sodium 136 - 144 mmol/L 139 Potassium 3.7 - 5.1 mmol/L 3.9 Chloride 97 - 105 mmol/L 103 CO2 22 - 30 mmol/L 29 Anion Gap 9 - 18 mmol/L 7 (L) eGFR >=60 mL/min/1.73m 76 Cholesterol, Total <200 mg/dL 192 Triglyceride <150 mg/dL 55 HDL Cholesterol >39 mg/dL 60 Non HDL Cholesterol <130 mg/dL 132 (H) Fasting Time hrs 10 VLDL Cholesterol <30 mg/dL 11 TC:HDL Ratio <5.10 3.20 LDL Cholesterol <100 mg/dL 121 (H) LDL:HDL Ratio <2.54 2.02 Hemoglobin A1C 4.3 - 5.6 % 5.6 Estimated Average Glucose mg/dL 114 PSA <2.60 ng/mL 0.62 ASSESSMENT/PLAN: 1. Benign prostatic hyperplasia, unspecified whether lower urinary tract symptoms present - ICD9: 600.00, ICD10: N40.0 (primary diagnosis) - Continue take current medication, keep scheduled appointments with urology. 2. Personal history of malignant neoplasm of bladder - ICD9: V10.51, ICD10: Z85.51 - Same plan as #1. - CBC + DIFF 3. Hx of skin cancer, basal cell - ICD9: V10.83, ICD10: Z85.828 - Keep scheduled appointments with dermatology. 4. Seasonal allergies - ICD9: 477.9, ICD10: J30.2 - Refilled provided. - FLUTICASONE PROPIONATE 50 MCG/ACTUATION NASAL SPRAY,SUSPENSION 5. Right wrist pain - ICD9: 719.43, ICD10: M25.531 - + Tinels test, complete EMG. - Continue to wear wrist brace and use anti-inflammatories as needed. - EMG(NEURO/NI) 6. Elevated cholesterol - ICD9: 272.0, ICD10: E78.00 - Work on lifestyle changes at home. - Get repeat labs in 6 months prior to next office visit. - COMP METABOLIC PANEL - LIPID PANEL BASIC 7. Elevated glucose - ICD9: 790.29, ICD10: R73.09 - HGB A1C Follow-up in 6 months or sooner as needed. Discussed treatment plan and patient voices understanding. Patient's questions answered appropriately. Medications and potential side effects were discussed and patient voices understanding. Shaw Ohara APRN.JESSIE This note was partially generated using [employer] voice recognition system. Note was reviewed for accuracy. There may be minor misspellings or grammar miscues with [employer] voice recognition. documented in this encounter [facility] 09-26-2022 Instructions Tawny López APRN.CNP - 09/26/2022 11:24 AM EST Fact Sheet for Patients And Caregivers Emergency Use Authorization (EUA) Of Molnupiravir For Coronavirus Disease 2019 (COVID-19) What is the most important information I should know about molnupiravir? Molnupiravir may cause serious side effects, including: Molnupiravir may cause harm to your unborn baby. It is not known if molnupiravir will harm your baby if you take molnupiravir during . Molnupiravir is not recommended for use in . Molnupiravir has not been studied in . Molnupiravir was studied in animals only. When molnupiravir was given to animals, molnupiravir caused harm to their unborn babies. You and your healthcare provider may decide that you should take molnupiravir during if there are no other COVID-19 treatment options authorized by the FDA that are accessible or clinically appropriate for you. If you and your healthcare provider decide that you should take molnupiravir during , you and your healthcare provider should discuss the known and potential benefits and the potential risks of taking molnupiravir during . For individuals who are able to become : You should use a reliable method of control (contraception) consistently and correctly during treatment with molnupiravir and for 4 days after the last dose of molnupiravir. Talk to your healthcare provider about reliable control methods. Before starting treatment with molnupiravir your healthcare provider may do a test to see if you are before starting treatment with molnupiravir. Tell your healthcare provider right away if you become or think you may be during treatment with molnupiravir. Surveillance Program: There is a surveillance program for individuals who take molnupiravir during . The purpose of this program is to collect information about the health of you and your baby. Talk to your healthcare provider about how to take part in this program. If you take molnupiravir during and you agree to participate in the surveillance program and allow your healthcare provider to share your information with [employer], then your healthcare provider will report your use of molnupiravir during to [employer] by calling or [email or web address]. For individuals who are sexually active with partners who are able to become : It is not known if molnupiravir can affect sperm. While the risk is regarded as low, animal studies to fully assess the potential for molnupiravir to affect the babies of males treated with molnupiravir have not been completed. A reliable method of control (contraception) should be used consistently and correctly during treatment with molnupiravir and for at least 3 months after the last dose. The risk to sperm beyond 3 months is not known. Studies to understand the risk to sperm beyond 3 months are ongoing. Talk to your healthcare provider about reliable control methods. Talk to your healthcare provider if you have questions or concerns about how molnupiravir may affect sperm. You are being given this fact sheet because your healthcare provider believes it is necessary to provide you with molnupiravir for the treatment of adults with [id number] coronavirus disease 2019 (COVID-19) with positive results of direct SARS-CoV-2 viral testing, and who are at high risk for progressing to severe COVID-19 including hospitalization or , and for whom other COVID-19 treatment options authorized by the FDA are not accessible or clinically appropriate. The U.S. Food and Drug Administration (FDA) has issued an Emergency Use Authorization (EUA) to make molnupiravir available during the COVID-19 pandemic (for more details about an EUA please see What is an Emergency Use Authorization? at the end of this document). Molnupiravir is not an FDA-approved medicine in the [place]. Read this Fact Sheet for information about molnupiravir. Talk to your healthcare provider about your options if you have any questions. It is your choice to take molnupiravir. What is COVID-19? COVID-19 is caused by a virus called a coronavirus. You can get COVID-19 through close contact with another person who has the virus. COVID-19 illnesses have ranged from very jwkf-bu-jyaiti, including illness resulting in . While information so far suggests that most COVID-19 illness is mild, serious illness can happen and may cause some of your other medical conditions to become worse. Older people and people of all ages with severe, long lasting (chronic) medical conditions like heart disease, lung disease and diabetes, for example seem to be at higher risk of being hospitalized for COVID-19. What is molnupiravir? Molnupiravir is an investigational medicine used to treat qnkg-hp-vlnucutg COVID-19 in adults: with positive results of direct SARS-CoV-2 viral testing, and who are at high risk for progressing to severe COVID-19 including hospitalization or , and for whom other COVID-19 treatment options authorized by the FDA are not accessible or clinically appropriate. The FDA has authorized the emergency use of molnupiravir for the treatment of mild-tomoderate COVID-19 in adults under an EUA. For more information on EUA, see the What is an Emergency Use Authorization (EUA)? section at the end of this Fact Sheet. Molnupiravir is not authorized: for use in people less than 18 years of age. for prevention of COVID-19. for people needing hospitalization for COVID-19. for use for longer than 5 consecutive days. What should I tell my healthcare provider before I take molnupiravir? Tell your healthcare provider if you: Have any allergies Are or plan to breastfeed Have any serious illnesses Are taking any medicines (prescription, qizn-ocu-ozyauhs, vitamins, or herbal products). How do I take molnupiravir? Take molnupiravir exactly as your healthcare provider tells you to take it. Take 4 capsules of molnupiravir every 12 hours (for example, at 8 am and at 8 pm) Take molnupiravir for 5 days. It is important that you complete the full 5 days of treatment with molnupiravir. Do not stop taking molnupiravir before you complete the full 5 days of treatment, even if you feel better. Take molnupiravir with or without food. You should stay in isolation for as long as your healthcare provider tells you to. Talk to your healthcare provider if you are not sure about how to properly isolate while you have COVID-19. Swallow molnupiravir capsules whole. Do not open, break, or crush the capsules. If you cannot swallow capsules whole, tell your healthcare provider. What to do if you miss a dose: If it has been less than 10 hours since the missed dose, take it as soon as you remember If it has been more than 10 hours since the missed dose, skip the missed dose and take your dose at the next scheduled time. Do not double the dose of molnupiravir to make up for a missed dose. What are the important possible side effects of molnupiravir? Possible side effects of molnupiravir are: See, What is the most important information I should know about molnupiravir? diarrhea nausea dizziness These are not all the possible side effects of molnupiravir. Not many people have taken molnupiravir. Serious and unexpected side effects may happen. This medicine is still being studied, so it is possible that all of the risks are not known at this time. What other treatment choices are there? Like molnupiravir, FDA may allow for the emergency use of other medicines to treat people with COVID-19. Go to https://www.fda.gov/emergency-pre yrhdtpndi-fms-bkjzfccp/mcm-legalr ndinyjydy-snh-rgtpyy-framework/em xkixngp-ddk-vqznccbnlyjlx for more information. It is your choice to be treated or not to be treated with molnupiravir. Should you decide not to take it, it will not change your standard medical care. What if I am ? is not recommended during treatment with molnupiravir and for 4 days after the last dose of molnupiravir. If you are or plan to breastfeed, talk to your healthcare provider about your options and specific situation before taking molnupiravir. How do I report side effects with molnupiravir? Contact your healthcare provider if you have any side effects that bother you or do not go away. Report side effects to FDA MedWatch at www.fda.gov/medwatch or call 4-502-SSS-6490 ( ). How should I store molnupiravir? Store molnupiravir capsules at room temperature between 68 F to 77 F (20 C to 25 C). Keep molnupiravir and all medicines out of the reach of children and pets. How can I learn more about COVID-19? Ask your healthcare provider. Visit www.cdc.gov/COVID19 Contact your local or state public health department. Call [employer] at (toll free in the [place] Visit www.jaeyos What Is an Emergency Use Authorization (EUA)? The [place] FDA has made molnupiravir available under an emergency access mechanism called an Emergency Use Authorization (EUA) The EUA is supported by a [place] of Health and Human Service ([facility]) declaration that circumstances exist to justify emergency use of drugs and biological products during the COVID-19 pandemic. Molnupiravir for the treatment of xxdc-va-eisysbyd COVID-19 in adults with positive results of direct SARS-CoV-2 viral testing, who are at high risk for progression to severe COVID-19, including hospitalization or , and for whom alternative COVID-19 treatment options authorized by FDA are not accessible or clinically appropriate, has not undergone the same type of review as an FDA-approved product. In issuing an EUA under the COVID-19 public health emergency, the FDA has determined, among other things, that based on the total amount of scientific evidence available including data from adequate and well-controlled clinical trials, if available, it is reasonable to believe that the product may be effective for diagnosing, treating, or preventing COVID-19, or a serious or life-threatening disease or condition caused by COVID19; that the known and potential benefits of the product, when used to diagnose, treat, or prevent such disease or condition, outweigh the known and potential risks of such product; and that there are no adequate, approved, and available alternatives. All of these criteria must be met to allow for the product to be used in the treatment of patients during the COVID-19 pandemic. The EUA for molnupiravir is in effect for the duration of the COVID-19 declaration justifying emergency use of molnupiravir, unless terminated or revoked (after which molnupiravir may no longer be used under the EUA). For patent information: www.[employer]/research/patent Copyright 2020 [employer] [place], [place] and its affiliates. All rights reserved. [id number] Issued: 09/30/2021 documented in this encounter [facility] 09-26-2022 History of Present illness Narrative VIRTUAL VISIT PROGRESS NOTE This is a virtual visit using [employer] video visit. It required patient-provider interaction for the medical decision making as documented below. Miley Baez is a 66 year old male seen for positive covid test at home on 09/25/2022. Patient reports his symptoms started on 09/25/2022 and include cough, runny nose, sneezing, hoarseness, mild fatigue. Denies fever, chills, shortness of breath, chest pain, n/v/d. HISTORY REVIEWED (electronic chart updated): PAST MEDICAL HISTORY Diagnosis Date Malignant neoplasm of bladder, part unspecified Other and unspecified hyperlipidemia Seasonal allergies PAST SURGICAL HISTORY Procedure Laterality Date COLONOSCOPY 11/10/2021 repeat in 10 years COLONOSCOPY FLX DX W/COLLJ SPEC WHEN PFRMD 04/06/2011 FAMILY HISTORY Problem Relation Age of Onset Heart Father at age of 53 Diabetes Mother Heart Mother [place] 73, heart valve replacement Diabetes Maternal Grandmother Social History Tobacco Use Smoking status: Never Smokeless tobacco: Never Substance Use Topics Alcohol use: Yes Comment: Occ Drug use: Never Current Outpatient Medications Medication Sig dutasteride (AVODART) 0.5 mg capsule Take 0.5 mg by mouth once daily. fluticasone (FLONASE) 50 mcg/actuation nasal spray Use 2 Sprays in each nostril once daily. tamsulosin ER (FLOMAX) 0.4 mg cp24 TAKE 1 CAPSULE TWICE DAILY ASPIRIN 81 MG TAB, DELAYED RELEASE Take one(1) tablet daily. No current facility-administered medications for this visit. ALLERGIES Allergen Reactions Hay Fever [Other] REVIEW OF SYSTEMS: SEE HPI PHYSICAL EXAMINATION: VIDEO EXAM: (if completed, performed via video enabled technology) GENERAL: alert and appropriate, in no distress, well-hydrated, well nourished, and happy, smiling, interactive HEAD: normocephalic, no abnormality or lesion noted NOSE: external nose normal without rhinorrhea OROPHARYNX: moist mucus membranes RESPIRATORY: breathing non-labored ASSESSMENT/PLAN: 1. COVID-19 - ICD9: 079.89, ICD10: U07.1 I spent a total of 13 minutes on the date of the service which included preparing to see the patient, bzto-tp-fugs patient care, completing clinical documentation, obtaining and/or reviewing separately obtained history, performing a medically appropriate examination, counseling and educating the patient/family/caregiver, ordering medications, tests, or procedures, communicating results to the patient/family/caregiver, and care coordination (not separately reported) Tawny López APRN.SALES REPRESENTATIVE TRAINEE Molnupiravir Eligibility and Patient Discussion [facility] Formulary Restriction Criteria: Adult outpatients 18 years and older with ALL of the following: [x] Patient has positive SARS-COV-2 viral test (PCR or antigen test) during current illness [x] Patient has symptoms for 5 days or less [x] Not requiring hospitalization at any time for management of COVID-19 [x] Not requiring supplemental oxygen or a change in baseline supplemental oxygen [x] Not utilized for pre-exposure or post-exposure prophylaxis for prevention of COVID-19 [x] Patient is not or lactating [x] Meeting at least one of the criteria for high risk of progression to severe COVID-19: [x] Age over 65 years [] Cancer [] Chronic kidney disease [] Chronic liver disease [] Chronic lung diseases, including cystic fibrosis [] Dementia or other neurological conditions [] Diabetes (type 1 or type 2) [] Disabilities, including Down syndrome and neurodevelopmental disorders [] Heart conditions [] HIV infection [] Immunocompromised state [] Mental health conditions [] Medical related technological dependence (tracheostomy, gastrostomy, or positive pressure ventilation (not related to COVID) [x] Overweight and obesity (BMI greater or equal to 25 for adults) [] Physical inactivity [] Sickle cell disease or thalassemia [] Smoking, current or former [] Solid organ or blood stem cell transplant [] Stroke or cerebrovascular disease [] Substance use disorders [] Tuberculosis [] People from racial and ethnic minority groups Criteria above are met: Yes Date of Positive Test:09/25/2022 Date of Symptom Onset: 09/25/2022 Patient received COVID vaccine: Yes / status reviewed: Females: [] Patient is not currently and there is no possibility the patient could be (select one of the following): [] test does not need to be confirmed in patients who have undergone permanent sterilization, are currently using an intrauterine system or contraceptive implant, or in whom is not possible. [] Patients not meeting conditions above: assess whether the patient is based on the first day of the last menstrual period in individuals who have regular menstrual cycles, is using reliable method of contraception correctly and consistently or have had a negative test [] A test is recommended if the individual has irregular menstrual cycles, is unsure of the first day of the last menstrual period or is not using effective contraception correctly and consistently [] Patient is not currently . is not recommended during treatment and for four days after final dose of molnupiravir. [] Females have been advised to use a reliable method of contraception correctly and consistently for the duration of treatment and for four days after the last dose of molnupiravir Males: [x] Sexually active male with partner(s) of childbearing potential has been advised to use a reliable method of contraception correctly and consistently for intercourse for the duration of treatment and for three months after the last dose of molnupiravir I have discussed the use of the investigational therapeutic, molnupiravir, for the treatment of mild to moderate COVID-19 and its use under Emergency Use Authorization with the patient. The patient was informed that molnupiravir is not an FDA approved drug and that it is authorized for use under this Emergency Use Authorization. The patient was also informed of the significant known benefits and potential risks of molnupiravir, and the extent to which such potential risks and benefits are unknown. The patient was informed that there is mandatory reporting of all medication errors and serious adverse events potentially related to molnupiravir treatment within 7 calendar days from the onset of the event and that events up to 28 days after completion of therapy need to be reported. The discussion included alternatives to receiving molnupiravir, including clinical trials, and potential the risks and benefits of those alternatives. The patient was provided electronically with the Fact Sheet for Patients, Parents and Caregivers . The patient was also instructed that in addition to the treatment with molnupiravir, he/she should continue to self-isolate and use infection control measures (e.g., wear mask, isolate, social distance, avoid sharing personal items, clean and disinfect high touch surfaces, and frequent handwashing) according to CDC guidelines. The patient stated understanding and gave verbal consent to proceeding with molnupiravir treatment. Tawny López APRN.CNP September 26, 2022 11:17 AM documented in this encounter [facility] documented in this [facility] Diagnosis Benign prostatic hyperplasia, unspecified whether lower urinary tract symptoms present- Primary Personal history of malignant neoplasm of bladder Hx of skin cancer, basal cell Personal history of other malignant neoplasm of skin Seasonal allergies Allergic rhinitis, cause unspecified Right wrist pain Pain in joint, forearm Elevated cholesterol Pure hypercholesterolemia Elevated glucose Other abnormal glucose Malignant neoplasm of urinary bladder, unspecified site (HCC) documented in this encounter [facility] Diagnosis Paresthesia of skin- Primary Disturbance of skin sensation Right wrist pain Pain in joint, forearm documented [facility] this [facility] Diagnosis Carpal tunnel syndrome, right- Primary Carpal tunnel syndrome documented in this encounter [facility] Diagnosis Carpal tunnel syndrome, right Carpal tunnel syndrome documented in this encounter [facility] Diagnosis Carpal tunnel syndrome on right- Primary Carpal tunnel syndrome Carpal tunnel syndrome on right Carpal tunnel syndrome documented [facility] this [facility] Diagnosis Elevated cholesterol- Primary Pure hypercholesterolemia Seasonal allergies Allergic rhinitis, cause unspecified Benign prostatic hyperplasia, unspecified whether lower urinary tract symptoms present Carpal tunnel syndrome on right Carpal tunnel syndrome documented in this encounter [facility] Outpatient Procedure (Routine) - Authorized Specialty Diagnoses / Procedures Referred By Garland perea Referred To Contact [facility] Diagnoses Right wrist pain Procedures EMG(NEURO/NI) NERVE CONDUCTION STUDIES 9-10 STUDIES Shaw Ohara APRN.SALES REPRESENTATIVE TRAINEE [address] [place] [address] [facility] [place] [address] [place] [address] Referral ID Status Reason Start Date Expiration Date Visits Requested Visits Authorized [id number] Authorized Auto-Generat ed Referral 03/09/2023 03/09/2024 1 1 [facility] Reason for Referral Specialty Diagnoses / Procedures Referred By Garland perea Referred To Contact Orthopedics Diagnoses Carpal tunnel syndrome, right Procedures CONSULT TO ORTHOPAEDICS OFFICE/OUTPATIENT [facility] 60-74 MINUTES Fernando Hayes APRN.SALES REPRESENTATIVE TRAINEE [address] [place] [address] Referral ID Status Reason Start Date Expiration Date Visits Requested Visits Authorized [id number] Authorized PCP Requested Referral 05/05/2023 05/04/2024 1 1 Summary Purpose Family History No Family History Records Found Advance Directives No Advanced Directives Records Found Additional Source Comments Source Comments (unrecognize d section and content) In the event this informatio n is protected by the Federal Confidentiality of Alcohol and Drug Abuse Patient Records regulations: The Federal rules restrict any use of the information to criminally investigate or prosecute any alcohol or drug abuse patient.[facility] the event this information is protected by the Federal Confidentiality of Alcohol and Drug Abuse Patient Records regulations: The Federal rules restrict any use of the information to criminally investigate or prosecute any alcohol or drug abuse patient.[facility] the event this information is protected by the Federal Confidentiality of Alcohol and Drug Abuse Patient Records regulations: The Federal rules restrict any use of the information to criminally investigate or prosecute any alcohol or drug abuse patient.[facility] the event this information is protected by the Federal Confidentiality of Alcohol and Drug Abuse Patient Records regulations: The Federal rules restrict any use of the information to criminally investigate or prosecute any alcohol or drug abuse patient.[facility] the event this information is protected by the Federal Confidentiality of Alcohol and Drug Abuse Patient Records regulations: The Federal rules restrict any use of the information to criminally investigate or prosecute any alcohol or drug abuse patient.[facility] the event this information is protected by the Federal Confidentiality of Alcohol and Drug Abuse Patient Records regulations: The Federal rules restrict any use of the information to criminally investigate or prosecute any alcohol or drug abuse patient.[facility] the event this information is protected by the Federal Confidentiality of Alcohol and Drug Abuse Patient Records regulations: The Federal rules restrict any use of the information to criminally investigate or prosecute any alcohol or drug abuse patient.[facility] Reason for Visit (unrecogniz ed section and content) Reason Comments 6 Month Exam labs Reason Onset Date Comments EMG 05/05/2023 Specialty Diagnoses / Procedures Referred By Garland t Referred To [facility] Diagnoses Right wrist pain Procedures EMG(NEURO/NI) NERVE CONDUCTION STUDIES 9-10 STUDIES Shaw Ohara, PULMONARY FUNCTION TECHNOLOGIST.SALES REPRESENTATIVE TRAINEE [address] [place] [address] [facility] [place] [address] [place] [address] Referral ID Status Reason Start Date Expiration Date V isits Requested Visits Authorized [id number] Closed Auto-Generate d Referral 03/09/2023 03/09/2024 1 1 Reason Comments Results Reason Comments New CTS Pain CTS Specialty Diagnoses / Procedures Referred By Contebony t Referred To Contact Orthopedics Diagnoses Carpal tunnel syndrome, right Procedures CONSULT TO ORTHOPAEDICS OFFICE/OUTPATIENT NEW HIGH MDM 60-74 MINUTES Fernando Hayes, PULMONARY FUNCTION TECHNOLOGIST.SALES REPRESENTATIVE TRAINEE [address] [place] [address] Referral ID Status Reason Start Date Expiration Date V isits Requested Visits Authorized [id number] Closed PCP Requested Referral 05/05/2023 05/04/2024 1 1 Reason Comments Schedule Surgery Reason Comments F/U 6 Month Care Teams (unrecognized sec tion and content) Lead Generator Relationship Specialty Start Date End Date Ambrosio Conley MD [address], [place] [id number] PCP - General Family Medicine 09/29/10 Lead Generator Relationship Specialty Start Date End Date Ambrosio Conley MD [address] [place] [address] PCP - General Family Medicine 09/29/10 Lead Generator Relationship Specialty Start Date End Date Ambrosio Conley MD [address], [place] [id number] PCP - General Family Medicine 09/29/10 Lead Generator Relationship Specialty Start Date End Date Ambrosio Conley MD [address], [place] [id number] PCP - General Family Medicine 09/29/10 Lead Generator Relationship Specialty Start Date End Date Ambrosio Conley MD [address], [place] [id number] PCP - General [facility] 09/29/10 Lead Generator Relationship Specialty Start Date End Date Ambrosio Conley MD [address], [place] [address] PCP - General [facility] 09/29/10 (unrecognized sect ion and content) No Status Records Found INFORMATION SOURCE (unrecogn ized section and content) FOR RECORDS PERTAINING TO PATIENTS WHO ARE OR HAVE BEEN ENROLLED IN A CHEMICAL DEPENDENCY/SUBSTANCEABUSE PROGRAM, SOME INFORMATION MAY BE OMITTED. This clinical summary was aggregated from multiple sources. Caution should be exercised in using it in the provision of clinical care. This summary normalizes information from multiple sources, and as a consequence, information in this document may materially change the coding, format and clinical context of patient data. In addition, data may be omitted in some cases. CLINICAL DECISIONS SHOULD BE BASED ON THE PRIMARY CLINICAL RECORDS. [employer] provides no warranty or guarantee of the accuracy or completeness of information in this document.
[2023-10-06 12:53] LABS: PSA,Total- Diagnostic 0.56 ng/mL (0.0-4.0)
== END | disposition home or self-care (01) ==
PROVIDERS: PCP Family Medicine; Referring Provider Urology; Visit Provider Urology
DX: N40.1 Benign prostatic hyperplasia with lower urinary tract symptoms (principal)
CPT/HCPCS: 36415; 84153

== ENCOUNTER 2024-05-13 12:10 | Outpatient (RCR) | payer SELFPAY | END 2024-06-08 23:59 | LOC: NS 12:10 | PROVIDERS: PCP Family Medicine | DX: Z71.3 Dietary counseling and surveillance (principal) ==

== ENCOUNTER → 2024-10-07 | Outpatient (CLI) | payer MEDICARE, OTHER, SELFPAY ==
[2024-10-07 12:30] LABS: PSA,Total - Annual Screen 0.52 ng/mL (0.00-4.00)
== END | disposition home or self-care (01) ==
LOC: LAB 10:56
PROVIDERS: PCP Family Medicine; Referring Provider Urology; Visit Provider Urology
DX: Z12.5 Encounter for screening for malignant neoplasm of prostate (principal)
CPT/HCPCS: 36415; 84153; G0103